=== PATIENT | female | born 1950 | race Caucasian/White ===

== ENCOUNTER 2024-10-27 07:40 | Day surgery (SDC) | payer MEDICARE, BC ==
[2024-10-17 12:10] LABS: BILIRUBIN,URINE NEGATIVE (Neg); CLARITY,URINE SLIGHTLY CLOUDY (Clear); COLOR,URINE STRAW (Yellow); GLUCOSE, URINE NEGATIVE (Neg); KETONES,URINE NEGATIVE (Neg); LEUKOCYTE ESTERASE ,URINE SMALL (Neg); NITRITES, URINE NEGATIVE (Neg); OCCULT BLOOD,URINE NEGATIVE (Neg); PROTEIN,URINE NEGATIVE (Neg); UROBILINOGEN,URINE 0.2 E.U/dL (0.2-1.0)
[2024-10-17 12:10] LABS: BASOPHILS # (AUTO) 0.1 X10'3 (0-0.2); EOSINOPHILS # (AUTO) 0.3 X10'3 (0-0.9); EOSINOPHILS % (AUTO) 4.7 % (0-6); LYMPHOCYTES # (AUTO) 1.4 X10'3 (1.1-4.8); LYMPHOCYTES % (AUTO) 20.8 % (21-51); MEAN CORPUSCULAR HEMOGLOBIN 29.3 PG (27.0-31.0); MEAN CORPUSCULAR HGB CONC 33.1 g/dL (33.0-36.5); MEAN CORPUSCULAR VOLUME 88.4 FL (78-98); MEAN PLATELET VOLUME 9.2 FL (7.4-10.4); MONOCYTES # (AUTO) 0.5 X10'3 (0-0.9); MONOCYTES % (AUTO) 7.8 % (2-12); NEUTROPHILS # (AUTO) 4.4 X10'3 (1.8-7.7); NEUTROPHILS % (AUTO) 65.7 % (42-75); PRE OP HEMATOCRIT 43.1 % (35.0-45.0); PRE OP HEMOGLOBIN 14.3 g/dL (12.0-16.0); PRE OP PLATELET COUNT 256 X10'3 (140-440); PRE OP WHITE BLOOD COUNT 6.8 10'3 (4.8-10.8); RED BLOOD COUNT 4.88 X10'6 (4.20-5.60); RED CELL DISTRIBUTION WIDTH 13.4 % (11.5-14.5)
[2024-10-17 12:13] LABS: UA COLLECTION TYPE CLN CATCH MIDSTREAM
[2024-10-17 12:17] LABS: BACTERIA,URINE FEW /HPF (Neg); RBC,URINE 0-2 /HPF (0-2); RENAL CELLS, URINE FEW /HPF; SQUAMOUS EPITHELIAL CELL,UR MODERATE /LPF (FEW); TRANSITIONAL EPI CELLS,URINE FEW /HPF
[2024-10-17 12:26] LABS: ALBUMIN 4.1 G/DL (3.4-5.0); ALBUMIN/GLOBULIN RATIO 1.1 (1.1-1.5); ALKALINE PHOSPHATASE 110 IU/L (46-116); BLOOD UREA NITROGEN 15 MG/DL (7-18); BUN/CREATININE RATIO 25.4 (10.0-20.0); CHLORIDE 107 MMOL/L (99-107); CREATININE 0.59 MG/DL (0.40-0.90); PRE OP ALT 23 U/L (30-65); PRE OP ANION GAP 7 (8-16); PRE OP AST 16 U/L (10-37); PRE OP GLUCOSE 96 MG/DL (70-104); PRE OP POTASSIUM 3.7 MMOL/L (3.4-5.1); PRE OP SODIUM 143 MMOL/L (135-145); TOTAL CARBON DIOXIDE 29.4 MMOL/L (24-32); TOTAL PROTEIN 7.7 G/DL (6.4-8.2); eGFR > 90 ML/MIN
[2024-10-27] VITALS (47 sets, daily range): BP systolic 94–133; BP diastolic 53–71; PULSE 64–85; RESP 10–17; TEMP 97.3–99.1; O2SAT 92–100
[~2024-10-27] VITALS: Ht 172.7 cm; Wt 70.0 kg
[2024-10-27] MEDS: clindamycin-Cleocin 900mg/D5W 50 ML IV ONE (05:30)
[~2024-10-27 07:40] MED LIST: AMLO10TA13 PO; ATOR10TA70 PO; BUPIVAcaine 2.5mg/ml inj 50ml vial (contains preservative) ONE; FLUT12AE4 PO; HYDR12.55 PO; TELM40TA8 PO; clindamycin phosphate 40gm vag cream ONE; gentamicin 40 MG/1 ML inj ONE; vasoPRESSIN 20 units/ml inj. ONE
[2024-10-27] MEDS: famotidine 20mg tablet PO ONE (08:46)
[2024-10-27] MEDS: ringers solution, lacted 1,000 ML IV SCH ×3 (08:47→16:33)
[2024-10-27] MEDS ORDERED: sevoflurane 250ml liquid IH ONE (10:03)
[2024-10-27] MEDS ORDERED: midazolam 1 mg/ML 2ml injection ONE (10:08)
[2024-10-27] MEDS ORDERED: fentaNYL /PF 50mcg/ml 5ml ampule ONE (10:08)
[2024-10-27] MEDS ORDERED: propofol inj 20 ML IV ONE (10:09)
[2024-10-27] MEDS ORDERED: HYDROmorphone/PF 0.2 MG/ML SYRINGE IV PRN ×2 (10:25)
[2024-10-27] MEDS ORDERED: labetalol 20mg/4ml (5mg/ml) syringe IV PRN (10:25)
[2024-10-27] MEDS ORDERED: meperidine/PF 25mg/ml syringe IV PRN (10:25)
[2024-10-27] MEDS ORDERED: ondansetron/PF 4mg/2ml inj IV PRN ×2 (10:25→13:40)
[2024-10-27] MEDS ORDERED: morphine 4 MG/ML inj SYRINge IV PRN (10:25)
[2024-10-27] MEDS ORDERED: morphine 2 MG/ML inj. syringe IV PRN (10:25)
[2024-10-27] MEDS: BUPIVAcaine/PF 2.5 mg/ml (0.25%) 30ml vial IJ ONE (10:39)
[2024-10-27] MEDS ORDERED: rocuronium 10mg/ml inj IV ONE (10:44)
[2024-10-27] MEDS ORDERED: ondansetron/PF 4mg/2ml inj ONE (13:21)
[2024-10-27] MEDS ORDERED: dexamethasone sod phosphate 4mg/ml inj. ONE (13:21)
[2024-10-27] MEDS ORDERED: fluoroscein sod 10% (100mg/ml) 5ml vial ONE (13:22)
[2024-10-27] MEDS ORDERED: acetaminophen 1,000mg/100ml IV 100 ML IV ONE (13:28)
[2024-10-27] MEDS ORDERED: HYDROcodone/acetaminophen 10/325mg tab PO PRN (13:40)
[2024-10-27] MEDS ORDERED: normal saline 500ml IV soln 500 ML IV PRN (13:40)
[2024-10-27] MEDS ORDERED: magnesium hydroxide 30ml (MOM) UD suspension PO PRN (13:40)
[2024-10-27] MEDS ORDERED: temazepam 15mg capsule PO PRN (13:40)
[2024-10-27] MEDS ORDERED: diphenhydrAMINE 50 mg/ml inj IV PRN (13:40)
[2024-10-27] MEDS ORDERED: LORazepam 2 mg/ml vial IV PRN (13:40)
[2024-10-27] MEDS ORDERED: metoclopramide 5 mg/ml inj IV PRN (13:40)
[2024-10-27] MEDS: ketorolac trometh 30MG/ML vial 30 MG/ML VIAL IV ONE (14:12)
[2024-10-27] MEDS: simethicone 80mg chew tab PO PRN (16:27)
[2024-10-27] MEDS: ketorolac trometh 15mg/ml vial 15 MG/ML ML IV PRN (19:11)
[2024-10-27] MEDS: docusate sod 100mg capsule PO SCH (20:51)
[2024-10-27] MEDS: HYDROcodone/acetaminophen 10/325mg tab PO PRN (23:04)
[2024-10-28 02:47] VITALS: BP 106/57; PULSE 74; RESP 13; TEMP 98; O2SAT 95
[2024-10-28 05:14] LABS: BASOPHILS % (AUTO) 0.2 % (0-1); EOSINOPHILS % (AUTO) 0.1 % (0-6); HEMATOCRIT 37.3 % (35.0-45.0); HEMOGLOBIN 12.5 g/dl (12.0-16.0); LYMPHOCYTES # (AUTO) 1.1 X10'3 (1.1-4.8); MEAN CORPUSCULAR HEMOGLOBIN 29.6 PG (27.0-31.0); MEAN CORPUSCULAR HGB CONC 33.5 g/dL (33.0-36.5); MEAN CORPUSCULAR VOLUME 88.3 FL (78-98); MEAN PLATELET VOLUME 9.3 FL (7.4-10.4); MONOCYTES # (AUTO) 1.1 X10'3 (0-0.9); MONOCYTES % (AUTO) 8.7 % (2-12); NEUTROPHILS # (AUTO) 10.5 X10'3 (1.8-7.7); PLATELET COUNT 223 X10'3 (140-440); RED BLOOD COUNT 4.22 X10'6 (4.20-5.60); RED CELL DISTRIBUTION WIDTH 13.3 % (11.5-14.5); WHITE BLOOD COUNT 12.8 X10'3 (4.5-11.0)
[2024-10-28 05:31] LABS: ALBUMIN 3.2 G/DL (3.4-5.0); ANION GAP 7 (8-16); BLOOD UREA NITROGEN 11 MG/DL (7-18); BUN/CREATININE RATIO 17.5 (10.0-20.0); CALCIUM 8.6 MG/DL (8.5-10.1); CHLORIDE 108 MMOL/L (99-107); CREATININE 0.63 MG/DL (0.40-0.90); GLUCOSE 99 MG/DL (70-104); POTASSIUM 4.4 MMOL/L (3.5-5.1); SODIUM 143 MMOL/L (135-145); TOTAL CARBON DIOXIDE 28.2 MMOL/L (24-32); eCRCL 80 ML/MIN; eGFR > 90 ML/MIN
[2024-10-28 06:00] VITALS: BP 105/50; PULSE 67; RESP 13; TEMP 98.6; O2SAT 95
[2024-10-28 08:00] VITALS: RESP 16; O2SAT 95
[2024-10-28 10:00] VITALS: BP 91/55; PULSE 59; RESP 14; TEMP 97.6; O2SAT 98
== END 2024-10-28 14:24 | disposition home or self-care (01) ==
LOC: PAS 07:40 → UNDOADMOB 13:51 → SUR 3N 13:51 → PAS 10-28 14:24
PROVIDERS: ATTEND Obstetrics & Gynecology Obstetrics
DX: N81.89 Other female genital prolapse (principal); M19.90 Unspecified osteoarthritis, unspecified site; I10 Essential (primary) hypertension; E78.5 Hyperlipidemia, unspecified; Z79.899 Other long term (current) drug therapy; Z98.51 Tubal ligation status; Z98.49 Cataract extraction status, unspecified eye; Z98.890 Other specified postprocedural states
CPT/HCPCS: 36415; 57260; 57425; 58552; 71046; 80048; 80053; 81001; 82948; 85025; 86885; 86900; 86901; 87081; 87088; A4314; A4615; A4618; A7000; J0131; J1100; J1885; J2250; J2405; J2704; J3010; J3490; J7030; J7120; Z7506; Z7508; Z7512; Z7610; G0378; J1580